=== PATIENT | female | born 1945 | race Caucasian/White ===

== ENCOUNTER → 2018-11-18 12:35 | Outpatient (CLI) | payer MEDICARE, SELFPAY ==
--- NOTE | 2018-11-18 13:26 | DI.RAD.S_ITS ---
PROCEDURE: XR LUMBAR SPINE MIN 4V INDICATIONS: Lumbosacral spondylosis TECHNIQUE: 4 views of the lumbar spine were acquired. COMPARISON: None. FINDINGS: Bones: 5 nonrib-bearing vertebrae are present. There is mild levoscoliosis centered at L1 level. Minimal anterolisthesis of L4 on L5 is seen. Minimal retrolisthesis of L3 on L4 is also noted. There is no acute compression fracture. Degenerative endplate changes throughout lumbar spine is seen more prominent at L3-4 and L4-5 levels.. No suspicious bony lesions. Soft tissues: Overlying bowel gas pattern is normal. No suspicious soft tissue calcifications. Oblique images: No pars defects. Bilateral neuroforaminal narrowing at L4-5 level is seen. IMPRESSION: Minimal spondylolisthesis at L3-4 and L4-5 levels. Mild levoscoliosis centered at L1 level. No acute compression fracture. No gross pars defect. Degenerative disc disease throughout lumbar spine. Dictated by: Nick Berrios M.D. on 11/18/2018 at 14:41 Approved by: Nick Berrios M.D. on 11/18/2018 at 14:43
== END ==
PROVIDERS: PCP Family Medicine; Visit Provider Physical Medicine & Rehabilitation
DX: M47.27 Other spondylosis with radiculopathy, lumbosacral region (principal); M51.16 Intervertebral disc disorders with radiculopathy, lumbar region; M41.86 Other forms of scoliosis, lumbar region
CPT/HCPCS: 72110

== ENCOUNTER 2019-01-26 11:51 | Outpatient (CLI) | payer MEDICARE, SELFPAY ==
[2019-01-26] VITALS (8 sets, daily range): BP systolic 127–174; BP diastolic 75–94; PULSE 57–73; RESP 16–18; TEMP 36.3; O2SAT 97–100
--- NOTE | 2019-01-26 11:54 | DI.RAD.S_ITS ---
PROCEDURE: PAIN L/S FACET INJ/BLK 1ST JESSEE COMPARISON: None. INDICATIONS: Bilateral L4-5 L5-S1 facet joint injections Fluoroscopic spot filming was performed to verify placement of spinal needles at the L4-L5 and L5-S1 level(s), as labeled on the films. Appropriate location(s) of the needle tip(s) was confirmed by injection of iodinated contrast. Dictated by: Sonu Mariano M.D. on 01/26/2019 at 14:22 Approved by: Sonu Mariano M.D. on 01/26/2019 at 14:23
[2019-01-26] MEDS: fentaNYL 100 MCG/2 ML INJ 50 MCG IV (13:20)
[2019-01-26] MEDS: MIDAZOLAM 5 MG/5 ML VIAL IV (13:20)
[2019-01-26] MEDS: BETAMETHASONE 30 MG/5 ML MDV 12 MG INJ (13:31)
[2019-01-26] MEDS: BUPIVACAINE 0.5% (PF) VIAL 2 ML INJ (13:32)
[2019-01-26] MEDS: LIDOCAINE 1% 20 ML 10 ML INJ (13:32)
[2019-01-26] MEDS: IOPAMIDOL 15 ML VIAL 3 ML INJ (13:32)
--- NOTE | 2019-01-26 13:35 | PC.NURSE ---
ASSISTING PT OFF TABLE AND TRANSPORTING TO POST PROC AREA IN STABLE CONDITION.
--- NOTE | 2019-01-26 13:44 | P.PCN_ITS ---
Procedures Date/Time Date of procedure: 01/26/19 Time of procedure: 13:44 General Procedure description: PREOP DIAGNOSIS 1. FACET ARTHROPATHY 2. AXIAL LBP 3. MULTILEVEL DDD POST OP DIAGNOSIS 1. FACET ARTHROPATHY 2. AXIAL LBP 3. MULTILEVEL DDD PROCEDURES 1. FLUORSCOPICALLY GUIDED CONTRAST CONTROLLED FACET JOINT INJECTIONS BILATERAL L4/5, L5/S1 PHYSICIAN: Austin Yadav, DO INDICATIONS Shreya is referred by for treatment of Axial LBP FINDINGS Multilevel Facet Arthropathy with Clinically significant axial LBP DESCRIPTION OF PROCEDURE Fluoroscopically guided, contrast-controlled bilateral L4/5, L5/S1 facet joint injections. Following review of allergy and review of potential side effects and complications, including, but not necessarily limited to, infection, allergic reaction, local tissue breakdown, stroke, temporary or permanent nerve injury, paralysis, and possible , the patient indicated that the patient understood and agreed to proceed. An informed consent document was signed by the patient, witnessed by a nurse, and placed in the patient's chart. Additionally, other treatment options including medications, modalities, and physical therapy were reviewed with the patient. After review of previous anaesthesic history and IV conscious sedation the patient was deemed safe to proceed with todays procedure with IV conscious sedation as ASA class II designation. Safety time-out was performed to confirm patient ID, procedure to be performed and site of procedure. IV sedation was accomplished with a combination of 2mg of Versed and 50mcg of Fentanyl was administered by the RN after DO order, titrated to patient comfort during the course of the procedure while the patient remained responsive to all verbal commands In the prone position, following sterile prep and drape of the lumbar region, the posterior aspect of the L4/5, L5/S1 facet joints were identified fluoroscopically. The skin was anesthetized via a 25-gauge 1.5-inch needle with 1% lidocaine solution into the corresponding facet joints. At this point, a 22- gauge 3.5-inch spinal needle was atraumatically introduced and advanced under fluoroscopic guidance into the corresponding facet joints. Following negative aspiration, injections of approximately 0.2-cc of Isovue 200 confirmed interarticular placement without vascular uptake. The identical procedure was then performed at the L4/5, L5/S1 facet joints on the left. Radiological data, including multiple fluoroscopic views of the lumbosacral spine, reveal a spinal needle at the L4/5, L5/S1 facet joints bilaterally. Subsequent views show flow of contrast material both superiorly and inferiorly within the joint space without vascular or intrathecal uptake. At this point, a total of 0.5 cc including a mixture of 0.25cc Marcaine and 0.25cc betamethasone was injected without complication into each of the corresponding facet joints. The patient tolerated the procedure well without signs or symptoms of complications prior to transfer to the recovery area continued monitoring without incident. The patient was then transferred to the recovery area where they were observed for an appropriate period of time after the injection. The patient reported a VAS score of 7 prior to the procedure and a post- procedure VAS of 0. Total Fluoroscopy Time: 20.3 seconds Total Conscious Sedation Time: 24min POST OP INSTRUCTIONS The patient was provided a Pain Log to continue to record their response to the target-specific procedure prior to follow-up visit with their referring physician. Additionally, specific post-injection care instructions and a contact number to our office were provided if concerns arise regarding possible complications associated with the procedure are suspected. Austin Yadav DO Complications: none
--- NOTE | 2019-01-26 14:09 | PC.NURSE ---
Post procedure discharge note: Patient arrived for post procedure monitoring at 1345. Awake and alert. Hand off report received from Sharri Garcia RN. VSS, O2 sat WNL on RA. Pain level 1/10. Transferred from w/c to recliner independently. Denies any unusual numbness or tingling to lower extremities. Discharge instructions reviewed with good understanding. Discharged to home, w/c to car with at 1400.
== END 2019-01-26 14:00 | disposition home or self-care (01) ==
LOC: RAD 11:53
PROVIDERS: Family Provider Family Medicine; PCP Family Medicine; Visit Provider Physical Medicine & Rehabilitation
DX: M47.816 Spondylosis without myelopathy or radiculopathy, lumbar region (principal); M47.817 Spondylosis without myelopathy or radiculopathy, lumbosacral region; M54.5 Low back pain; M51.36 Other intervertebral disc degeneration, lumbar region; M51.37 Other intervertebral disc degeneration, lumbosacral region
CPT/HCPCS: 64493; 64494; 99152; J0702; J2250; J3010

== ENCOUNTER 2021-02-08 14:54 | Outpatient (CLI) | payer MEDICARE, OTHER, SELFPAY ==
--- NOTE | 2021-02-08 14:57 | DI.RAD.S_ITS ---
PROCEDURE: XR LUMBAR SPINE MIN 4V INDICATIONS: BACK PAIN TECHNIQUE: 5 views of the lumbar spine were acquired, including bilateral oblique views. COMPARISON: [facility], CR, XR LUMBAR SPINE MIN 4V, 11/18/2018, 13:33. FINDINGS: Bones: 5 nonrib-bearing vertebrae are present. There is grade 1 retrolisthesis of L2 on L3 and L3 on L4. Minimal anterolisthesis of L4 on L5 is also seen. Degenerative endplate changes and loss of disc height throughout lumbar spine is seen more prominent at L4-5 and L5-S1 levels. No vertebral body compression fractures. No suspicious bony lesions. Soft tissues: Overlying bowel gas pattern is normal. No suspicious soft tissue calcifications. Oblique images: No pars defects. IMPRESSION: Likely degenerative spondylolisthesis at L2-3 through L4-5 levels as above. No acute compression fracture. Degenerative disc disease throughout lumbar spine more prominent at L4-5 and L5-S1 levels. No gross pars defects. Dictated by: Ncik Berrios M.D. on 02/08/2021 at 15:32 Approved by: Nick Berrios M.D. on 02/08/2021 at 15:33
--- NOTE | 2021-02-08 14:57 | DI.RAD.S_ITS ---
PROCEDURE: XR HIP W PEL IF DONE JESSEE MIN 4V INDICATIONS: RIGHT HIP PAIN TECHNIQUE: AP pelvis with lateral view(s) of the bilateral hip(s). COMPARISON: None. FINDINGS: Bones: No fractures or dislocations. Right worse than left bilateral hip joint osteoarthritis is seen. Pelvic ring appears intact. No suspicious bony lesions. Soft tissues: The visualized bowel gas pattern is normal. No suspicious soft tissue calcifications. IMPRESSION: Right worse than left bilateral hip joint osteoarthritis. No fracture or dislocation. No evidence of avascular necrosis. Dictated by: Nick Berrios M.D. on 02/08/2021 at 15:31 Approved by: Nick Berrios M.D. on 02/08/2021 at 15:32
[2021-07-19 08:05] VITALS: BP 190/82; PULSE 58; RESP 16; TEMP 36.4; O2SAT 98
[2021-07-19 08:30] VITALS: BP 183/107; PULSE 66; RESP 16; O2SAT 100
[2021-07-19 08:35] VITALS: BP 147/67; PULSE 63; RESP 21; O2SAT 98
[2021-07-19 08:50] VITALS: BP 188/81; PULSE 64; RESP 20; O2SAT 99
[2021-07-19 08:55] VITALS: BP 172/77; PULSE 63; RESP 20; O2SAT 98
[2021-07-19 09:00] VITALS: BP 169/72; PULSE 61; RESP 18; O2SAT 98
== END 2021-07-19 09:10 | disposition home or self-care (01) ==
LOC: RAD 14:57
PROVIDERS: Family Provider Family Medicine; PCP Family Medicine; Referring Provider Physical Medicine & Rehabilitation; Visit Provider Physical Medicine & Rehabilitation
DX: M16.0 Bilateral primary osteoarthritis of hip (principal); M47.27 Other spondylosis with radiculopathy, lumbosacral region; M51.16 Intervertebral disc disorders with radiculopathy, lumbar region; M51.17 Intervertebral disc disorders with radiculopathy, lumbosacral region; M25.551 Pain in right hip
CPT/HCPCS: 72110; 73522

== ENCOUNTER → 2021-07-18 13:56 | Outpatient (CLI) | payer MEDICARE, OTHER, SELFPAY ==
[2021-07-18 16:58] LABS: COVID19 -Nasal RAPID Negative (Negative)
== END ==
PROVIDERS: Family Provider Family Medicine; Visit Provider Physical Medicine & Rehabilitation
DX: Z20.822 Contact with and (suspected) exposure to COVID-19 (principal); M70.61 Trochanteric bursitis, right hip; M51.26 Other intervertebral disc displacement, lumbar region; M47.27 Other spondylosis with radiculopathy, lumbosacral region
CPT/HCPCS: 87635; 99214

== ENCOUNTER → 2021-07-19 07:41 | Outpatient (CLI) | payer MEDICARE, OTHER, SELFPAY ==
--- NOTE | 2021-07-19 | DI.RAD.S_ITS ---
PROCEDURE: PAIN L INTERLAMINAR/CAUDAL INJ INDICATIONS: Other intervertebral disc displacement, lumbar reg COMPARISON: [facility], CR, XR LUMBAR SPINE MIN 4V, 02/08/2021, 14:49. FINDINGS: Fluoroscopic spot filming was performed to verify placement of a spinal needle at the L4-L5 level, as labeled on the films. Appropriate location of the needle tip was confirmed by injection of iodinated contrast. IMPRESSION: Intraprocedural examination within normal limits. Dictated by: Michele Jon M.D. on 07/19/2021 at 8:15 Approved by: Michele Jon M.D. on 07/19/2021 at 8:15
[2021-07-19 08:30] VITALS: BP 183/107; PULSE 66; RESP 16; O2SAT 100
[2021-07-19] MEDS: MIDAZOLAM 2 MG/2 ML VIAL IV (08:30)
[2021-07-19 08:35] VITALS: BP 147/67; PULSE 63; RESP 21; O2SAT 98
[2021-07-19 08:40] VITALS: BP 149/69; PULSE 63; RESP 17; O2SAT 100
[2021-07-19] MEDS: IOPAMIDOL 15 ML VIAL 3 ML INJ (08:40)
[2021-07-19] MEDS: BETAMETHASONE 30 MG/5 ML MDV 6 MG INJ (08:41)
[2021-07-19] MEDS: DEXAMETHASONE 10 MG/ML VIAL 20 MG INJ (08:41)
[2021-07-19] MEDS: BUPIVACAINE 0.25% (PF) VIAL 2 ML INJ (08:41)
[2021-07-19 08:45] VITALS: BP 158/68; PULSE 62; RESP 22; O2SAT 100
--- NOTE | 2021-07-19 08:49 | P.PCN_ITS ---
Date/Time/Diagnoses Pre-procedure diagnosis: 1. HNP WITH RADICULAR FEATURES, 2. MULTILEVEL CENTRAL STENOSIS, Post-procedure diagnosis: same Procedure Notes Procedure: 1. FLUOROSCOPICALLY GUIDED CONTRAST CONTROLLED INTERLAMINAR EPIDURAL STEROID INJECTION -L4/5 Indications: Shreya is referred by Dr. Alonso for treatment of Bilateral Foraminal Stenosis R>L LE symptoms. Physician: Austin Yadav Total Fluoroscopy time (seconds): 8 Total sedation minutes: 13 Complications: none Procedure in detail & Post-procedure care: FINDINGS Multilevel Central Spinal Stenosis with Nerve Root Compression DESCRIPTION OF PROCEDURE Fluoroscopically guided, contrast-controlled L4/5 translaminar epidural steroid injection. Following review of allergy and review of potential side effects and complications, including, but not necessarily limited to, infection, allergic reaction, local tissue breakdown, temporary as well as permanent nerve injury, paralysis, stroke and possible , the patient indicated that the patient understood and agreed to proceed. An informed consent document was signed by the patient, witnessed by a nurse, and placed in the patient's chart. Additionally, other treatment options including modalities, medications, and physical therapy were reviewed with the patient. After review of previous anaesthesic history and IV conscious sedation the patient was deemed safe to proceed with today?s procedure with IV conscious sedation as ASA class II designation. Safety time-out was performed to confirm patient ID, procedure to be performed and site of procedure. IV sedation was accomplished with a combination of 2mg of Versed was administered by the RN after DO order, titrated to patient comfort during the course of the procedure while the patient remained responsive to all verbal commands In the prone position, following sterile prep and drape of the lumbar region, the L4/5 translaminar space was identified fluoroscopically. The skin was anesthetized via a 25-gauge, 1.5inch needle with 1% lidocaine solution. At this point, a 22-gauge short bevel spinal needle was atraumatically introduced and advanced under fluoroscopic guidance into the region of the L4/5 translaminar space. Depth was confirmed on lateral view. Radiological data, including multiple fluoroscopic views of the lumbar spine, reveal a spinal needle at the L4/5 translaminar space. Lateral views then show placement of the needle in the epidural space. Subsequent views show contrast material flowing superiorly and inferiorly in the epidural space. No vascular or intrathecal uptake is observed. At this point, using loss of resistance technique with saline and air, the epidural space was entered. This was confirmed following negative aspiration with injection of approximately 1.5cc of Isovue 200, showing excellent epidural flow without vascular or intrathecal uptake. At this point, 1cc of 1% lidocaine solution combined with 3cc or 20mg of dexamethasone and 6mg betamethasone was injected without incident. The patient tolerated the procedure well without signs or symptoms of complications prior to transfer to the recovery area continued monitoring without incident. The patient was then transferred to the recovery area where they were observed for an appropriate period of time after the injection. The patient reported a VAS score of 6 prior to the procedure and a post- procedure VAS of 0. POST OP INSTRUCTIONS The patient was provided a Pain Log to continue to record their response to the target-specific procedure prior to follow-up visit with their referring p hysician. Additionally, specific post-injection care instructions and a contact number to our office were provided if concerns arise regarding possible complications associated with the procedure are suspected.
== END ==
PROVIDERS: Family Provider Family Medicine; Referring Provider Physical Medicine & Rehabilitation; Visit Provider Physical Medicine & Rehabilitation
DX: M51.16 Intervertebral disc disorders with radiculopathy, lumbar region (principal); M48.061 Spinal stenosis, lumbar region without neurogenic claudication
CPT/HCPCS: 62323; 99152; J0702; J1100; J2250